=== PATIENT | female | born 1975 | race Caucasian/White ===

== ENCOUNTER 2019-12-14 11:32 | Emergency (ER) | payer BC ==
[2019-12-14] MEDS ORDERED: IBUPROFEN 800 MG TABLET PO ONE (12:42)
--- NOTE | 2019-12-14 12:48 | ER Document Report ---
ED Extremity Problem, Lower - General Chief Complaint: Foot Pain Stated Complaint: RIGHT FOOT PAIN Time Seen by Provider: 12/14/19 12:42 Primary Care Provider: DIAMANTE ISABEL DPM [ACTIVE STAFF] - Follow up in 3-5 days Mode of Arrival: Ambulatory Information source: Patient Notes: 44-year-old female presents to ED for complaint of pain to the top of the right foot at the inst. She states is been since Friday. She states she was moving before then she does not know if she injured it. She states when she lays down it does throb and is a level 4. She states she does have these ganglion cyst on both feet but they have never hurt. She is alert oriented respirations regular nonlabored speaking in full sentences. Constitutional: Negative for fever. HENT: Negative for sore throat. Eyes: Negative for visual changes. Cardiovascular: Negative for chest pain. Respiratory: Negative for shortness of breath. Gastrointestinal: Negative for abdominal pain, vomiting or diarrhea. Genitourinary: Negative for dysuria. Musculoskeletal: Pain to the top of the right foot Skin: Ganglion cyst to the top of the foot Neurological: Negative for headaches, weakness or numbness. 10 point ROS negative except as marked above and in HPI. PHYSICAL EXAMINATION: GENERAL: Well-appearing, well-nourished and in no acute distress. HEAD: Atraumatic, normocephalic. EYES: Pupils equal round extraocular movements intact, conjunctiva are normal. ENT: Nares patent NECK: Normal range of motion LUNGS: No respiratory distress Musculoskeletal: Pain to the top of the right foot, metatarsal tenderness to the top of the foot no definite injury, minimal swelling. NEUROLOGICAL: Normal speech, limp due to pain in foot PSYCH: Normal mood, normal affect. SKIN: Warm, Dry, normal turgor, no rashes or lesions noted. - HPI Patient complains to provider of: Pain, Swelling - Minimal Location: Foot Occurred: Other - Friday Onset/Duration: Gradual Quality of pain: Sharp Severity: Moderate Pain Level: 4 Recent injury: Possibly Associated symptoms: Painful ambulation Exacerbated by: Hanging down, Movement, Walking Relieved by: Elevation, Ice, Rest - Related Data Allergies/Adverse Reactions: azithromycin [From Zithromax] Allergy (Verified 12/14/19 12:34) Past Medical History - General Information source: Patient - Social History Smoking Status: Never Smoker Frequency of alcohol use: None Drug Abuse: None Family History: Reviewed & Not Pertinent Patient has suicidal ideation: No Patient has homicidal ideation: No - Past Medical History Cardiac Medical History: Reports: None Pulmonary Medical History: Reports: None EENT Medical History: Reports: None Neurological Medical History: Reports: None Endocrine Medical History: Reports: None Renal/ Medical History: Reports: None Malignancy Medical History: Reports: None GI Medical History: Reports: None Musculoskeletal Medical History: Reports Hx Musculoskeletal Deformity, Reports Hx Musculoskeletal Trauma Skin Medical History: Reports None Psychiatric Medical History: Reports: Hx Anxiety, Hx Depression Infectious Medical History: Reports: None Past Surgical History: Reports: Hx Adenoidectomy, Hx Hysterectomy, Hx Tonsillectomy, Other - Removed from right knee Physical Exam - Vital signs Vitals: Temp Pulse Resp BP Pulse Ox 97.4 F 78 16 150/100 H 97 12/14/19 11:37 12/14/19 11:37 12/14/19 11:37 12/14/19 11:37 12/14/19 11:37 Course - Re-evaluation Re-evalutation: 12/15/19 00:33 X-ray was discussed with patient and written report given to patient. There is no acute injuries to the foot. He does have to degenerative changes. He was treated with a postop shoe and instructed to follow-up with orthopedics or a bridge worker. A name and number of a bridge worker was given to the patient. Patient verbalized understanding and agreement treatment plan patient was discharged home. - Vital Signs Vital signs: Temp Pulse Resp BP Pulse Ox 98.1 F 70 16 142/85 H 97 12/14/19 15:22 12/14/19 15:22 12/14/19 15:22 12/14/19 15:22 12/14/19 15:22 - Diagnostic Test Radiology reviewed: Image reviewed, Reports reviewed Procedures - Immobilization Right Foot Time completed: 15:15 Pre-Proc Neuro Vasc Exam: Normal Immobilizer type: Post-op shoe Performed by: JASPER Post-Proc Neuro Vasc Exam: Normal Alignment checked and good: Yes Discharge - Discharge Clinical Impression: Foot pain, right Condition: Stable Disposition: HOME, SELF-CARE Additional Instructions: You were seen today for pain to the right foot. The x-ray did not show any acute changes. It did show some degenerative changes. Have given you a copy of the x-ray report. USE OF [id number] IBUPROFEN: Ibuprofen (Advil, Nuprin, Medipren, Motrin IB) is a medication for fever and pain control. In addition, it has anti- inflammatory effects which may be beneficial, especially in the treatment of injuries. It's best to take ibuprofen with food. Persons with ulcer disease or allergy to aspirin should notify their physician of this before taking ibuprofen. Ibuprofen can be given every four to six hours, for a total of four doses daily. Age Pain or fever dose Antiinflammatory dose 6-8 yr 200 mg (1 tab) 200 mg (1 tab) 9-11 yr 200 mg (1 tab) 200-400 mg (1-2 tab) 11-14 yr 200-400 mg (1-2 tab) 400 mg (2 tab) 15-adult 400 mg (2 tab) 600 mg (3 tab) Ice & Elevation Apply ice packs frequently against the painful area. Many different schedules are recommended, such as "20 minutes on, 20 minutes off" or "one hour ice, two hours rest." If you need to work, you may need to go longer between ice treatments. You should plan to have the area ice packed AT LEAST one-fourth of the time. The ice should be applied over the wrap, tape, or splint, or over a layer of cloth -- not directly against the skin. Some ice bags have a built-in cloth and can be put directly on the skin. Your injured part should be elevated as much as possible over the next 48 hours. Try to keep the injury above the level of the heart. Avoid use of the injured area. Elevation and rest will decrease the swelling. FOLLOW-UP CARE: If you have been referred to a physician for follow-up care, call the physicians office for an appointment as you were instructed or within the next two days. If you experience worsening or a significant change in your symptoms, notify the physician immediately or return to the Emergency Department at any time for re-evaluation. Forms: Elevated Blood Pressure Referrals: DIAMANTE ISABEL DPM [ACTIVE STAFF] - Follow up in 3-5 days
--- NOTE | 2019-12-14 14:42 | RADIOLOGY REPORT (SQ) ---
EXAM DESCRIPTION: FOOT RIGHT COMPLETE IMAGES COMPLETED DATE/TIME: 12/14/2019 2:30 pm REASON FOR STUDY: pain to top of instep COMPARISON: None. NUMBER OF VIEWS: Three views. TECHNIQUE: AP, lateral and oblique radiographic images acquired of the right foot. LIMITATIONS: None. FINDINGS: MINERALIZATION: Normal. BONES: No acute fracture or dislocation. No worrisome bone lesions. JOINTS: Degenerative changes in the tarsal bones with small dorsally directed osteophytes. Slight so ft tissue swelling overlying the mid metatarsal region. SOFT TISSUES: No soft tissue swelling. No foreign body. OTHER: No other significant finding. IMPRESSION: Degenerative changes. No acute findings. TECHNICAL DOCUMENTATION: JOB ID: [id number] 2010 [employer]- All Rights Reserved Reading location - IP/workstation name: [email or web address]
[2019-12-14 15:24] VITALS: BP 142/85
== END 2019-12-14 15:22 | disposition home or self-care (01) ==
LOC: ER 11:32
DX: M79.671 Pain in right foot (principal); M67.472 Ganglion, left ankle and foot; M67.471 Ganglion, right ankle and foot; Z88.1 Allergy status to other antibiotic agents
CPT/HCPCS: 99283

== ENCOUNTER 2020-03-20 09:33 | Emergency (ER) | payer BC, OTHER ==
[2020-03-20 09:53] VITALS: BP 153/86
[2020-03-20] MEDS ORDERED: PSEUDOEPHEDRINE HCL 30 MG TABLET PO ONE (11:00)
[2020-03-20] MEDS ORDERED: IBUPROFEN 600 MG TABLET PO ONE (11:00)
[2020-03-20] MEDS ORDERED: GUAIFENESIN 600 MG TABLET.SA PO ONE (11:00)
[2020-03-20] MEDS ORDERED: LORATADINE 10 MG TABLET PO ONE (11:00)
--- NOTE | 2020-03-20 11:05 | ER Document Report ---
ED ENT - General Chief Complaint: Dizziness Stated Complaint: EAR PAIN Time Seen by Provider: 03/20/20 10:55 Mode of Arrival: Ambulatory Information source: Patient Notes: 44-year-old female presents to ED for headache right ear pain headache runny nose congestion and dizziness this morning when she woke up. She does have fluid behind the right ear there is no signs or symptoms of an infection. She does have a history of frequent ear infections. She states the ear pain started last night. Constitutional: Negative for fever. HENT: Right ear pain headache nasal drainage postnasal drip yesterday Eyes: Negative for visual changes. Cardiovascular: Negative for chest pain. Dizziness this morning with drainage behind the right eardrum Respiratory: Negative for shortness of breath. Gastrointestinal: Negative for abdominal pain, vomiting or diarrhea. Genitourinary: Negative for dysuria. Musculoskeletal: Negative for back pain. Skin: Negative for rash. Neurological: Negative for headaches, weakness or numbness. 10 point ROS negative except as marked above and in HPI. PHYSICAL EXAMINATION: GENERAL: Well-appearing, well-nourished and in no acute distress. HEAD: Atraumatic, normocephalic. EYES: Pupils equal round extraocular movements intact, conjunctiva are normal. ENT: Purulent nasal drainage with drainage behind the right eardrum and postnasal drip NECK: Normal range of motion LUNGS: No respiratory distress lungs clear to auscultation all lobes Musculoskeletal: Normal range of motion NEUROLOGICAL: Normal speech, normal gait. PSYCH: Normal mood, normal affect. SKIN: Warm, Dry, normal turgor, no rashes or lesions noted. - HPI Patient complains to provider of: Ear problem, Other - Nasal drainage thick Onset: Yesterday Onset/Duration: Gradual Quality of pain: Achy Severity: Moderate Pain Level: 4 Location of pain: Ears Associated symptoms: Dizziness, Ear pain, Headache, Runny nose, Sinus drainage Similar symptoms previously: Yes Recently seen / treated by doctor: No - Related Data Allergies/Adverse Reactions: azithromycin [From Zithromax] Allergy (Verified 12/14/19 12:34) Past Medical History - General Information source: Patient - Social History Smoking Status: Never Smoker Frequency of alcohol use: None Drug Abuse: None Lives with: Family Family History: Reviewed & Not Pertinent Patient has homicidal ideation: No - Past Medical History Cardiac Medical History: Reports: None Pulmonary Medical History: Reports: None EENT Medical History: Reports: Ears, Nose Neurological Medical History: Reports: Hx Cerebrovascular Accident - From stress Endocrine Medical History: Reports: None Renal/ Medical History: Reports: None Malignancy Medical History: Reports: None GI Medical History: Reports: None Musculoskeletal Medical History: Reports Hx Musculoskeletal Deformity, Reports Hx Musculoskeletal Trauma Skin Medical History: Reports None Psychiatric Medical History: Reports: Hx Anxiety, Hx Depression Traumatic Medical History: Reports: None Infectious Medical History: Reports: None Past Surgical History: Reports: Hx Adenoidectomy, Hx Hysterectomy, Hx Tonsillectomy, Other - Removed from right knee Physical Exam - Vital signs Vitals: Temp Pulse Resp BP Pulse Ox 98.0 F 68 16 153/86 H 99 03/20/20 09:50 03/20/20 09:50 03/20/20 09:50 03/20/20 09:50 03/20/20 09:50 Course - Vital Signs Vital signs: Temp Pulse Resp BP Pulse Ox 98.0 F 68 16 153/86 H 99 03/20/20 09:50 03/20/20 09:50 03/20/20 09:50 03/20/20 09:50 03/20/20 09:50 - Laboratory Results Critical Laboratory Results Reviewed: No Critical Results - Radiology Results Critical Radiology Results Reviewed: No Critical Results Discharge - Discharge Clinical Impression: URI (upper respiratory infection) Qualifiers: URI type: unspecified viral URI Qualified Code(s): J06.9 - Acute upper respiratory infection, unspecified Ear pain Qualifiers: Laterality: right Qualified Code(s): H92.01 - Otalgia, right ear Condition: Stable Disposition: HOME, SELF-CARE Additional Instructions: UPPER RESPIRATORY ILLNESS: You have a viral infection of the respiratory passages -- a "cold." This common infection causes nasal congestion, drainage, and often sore throat and cough. It is highly contagious. The disease usually lasts about 10 to 14 days. There is no "cure" for the viral infection -- it must run its course. If there is a complication, such as bacterial infection in the nose, sinuses, middle ear, or bronchial tubes, antibiotics may be required. The antibiotics won't affect the virus. Drink plenty of fluids. A humidifier may help. An expectorant medication or decongestant may make you more comfortable. Use acetaminophen or ibuprofen for fever or aches. See the doctor if fever persists over two days, if there is any significant worsening of your symptoms, or if you simply fail to improve as expected. You have been recommended treatment with Claritin 10 mg Sudafed 30 mg and Mucinex 600 mg. These are all [id number] medications for cough cold congestion. You do need to call the go to the pharmacist to get the Sudafed from behind the counter please get a little red pills they are more effective. You could also use Flonase which is [id number] 1 spray each nostril twice a day. You could also use salt soda solution gargles. These will help to remove the drainage from the back your throat. Chloraseptic spray was bouj-[id number] that will also help with your sore throat. Salt and soda solution gargle 1 quart of water 1 tablespoon of salt 1 teaspoon of baking soda Mixed 3 ingredients together and boil for 1 minute Placed in a covered quart jar Use 1/2 ounce of cold solution to gargle 3 times a day USE OF ACETAMINOPHEN (Tylenol): Acetaminophen may be taken for pain relief or fever control. It's much safer than aspirin, offering a wider range of "safe" dosages. It is safe during . Some brand names are Tylenol, Panadol, Datril, Anacin 3, Tempra, and Liquiprin. Acetaminophen can be repeated every four hours. The following are maximum recommended dosages: >89 pounds or adults 650 mg to 900 mg Acetaminophen can be repeated every four hours. Maximum dose not to exceed 4000 mg a day. FOLLOW-UP CARE: If you have been referred to a physician for follow-up care, call the physicians office for an appointment as you were instructed or within the next two days. If you experience worsening or a significant change in your symptoms, notify the physician immediately or return to the Emergency Department at any time for re-evaluation. Forms: Elevated Blood Pressure, Return to Work Referrals: [facility] [Provider Group] - Follow up as needed [facility] [Provider Group] - Follow up as needed [facility] [Provider Group] - Follow up as needed [facility] [Provider Group] - Follow up as needed [facility] [Provider Group] - Follow up as needed [facility] [Provider Group] - Follow up as needed
== END 2020-03-20 11:10 | disposition home or self-care (01) ==
LOC: ER 09:33
DX: H92.01 Otalgia, right ear (principal); J06.9 Acute upper respiratory infection, unspecified; R42 Dizziness and giddiness; R51.9 Headache, unspecified; Z88.3 Allergy status to other anti-infective agents
CPT/HCPCS: 99283